=== PATIENT | female | born 1935 | race Caucasian/White ===

== ENCOUNTER → 2017-01-04 | Outpatient (CLI) | payer BC, OTHER ==
[~2017-01-04] MED LIST: OPTIRAY 320 IV PRN
--- NOTE | 2017-01-04 11:50 | DIAGNOSTIC IMAGING REPORT ---
CT kidneys KIDNEY (ABDOMEN) COMBO CLINICAL HISTORY: LEFT RENAL MASS renal mass TECHNIQUE: Pre and post contrast multi phase enhanced scans of the kidneys COMPARISON STUDY: 07/01/2016 FINDINGS: Study is performed in a helical fashion compared to the prior study. Unenhanced component of the study shows several exophytic cysts of the right as well as left kidney considered to be unchanged. There is hyperdense nodule posterior aspect upper pole left kidney evident maximum current dimensions of 1.8 cm. This measurement in retrospect is similar as compared to the prior study. Enhancement characteristics are unchanged. The unenhanced component of the study demonstrates a 27 Hounsfield unit measurement. Intermediate phases 22 Hounsfield units with delayed 52 Hounsfield units. All remaining components of the study shows simple cysts. Cortical atrophy of the left as well as right kidney is present. There is no evidence for new or interval process. Bowel pattern is nonobstructive. Peritoneum showed no significant adenopathy. There has been a prior cholecystectomy IMPRESSION: 1. The complex nodule upper pole left kidney is unchanged 2. Size, enhancement characteristics, and configuration show no change from the prior exam. 3. Several cysts involving both kidneys combine with components of cortical atrophy are stable. 4 no evidence for new or interval process. No significant adenopathy. 5. Continued monitoring per urologic recommendations is recommended to exclude the possibility of neoplasm. Electronically signed by: Bill Steinberg M.D. 01/04/2017 11:48 AM Dictated Date/Time: 01/04/2017 11:41 AM
== END | disposition home or self-care (01) ==
LOC: C.CTS 10:16
PROVIDERS: ATTEND Urology
DX: N28.89 Other specified disorders of kidney and ureter (principal); N28.1 Cyst of kidney, acquired

== ENCOUNTER → 2017-10-05 | Outpatient (CLI) | payer BC, OTHER ==
--- NOTE | 2017-10-05 11:21 | DIAGNOSTIC IMAGING REPORT ---
ABDOMEN AND PELVIS CT WITH IV CONTRAST CT DOSE: 1010.23 mGy.cm HISTORY: Follow-up study in a patient with a left renal mass N28.89 Left renal massnot diabetic, no latex allergy, no iodine TECHNIQUE: Multiaxial CT images of the abdomen and pelvis were performed following the use of intravenous contrast. 94 ml Optiray 320 IV contrast was administered A dose lowering technique was utilized adhering to the principles of ALARA. COMPARISON STUDY: CT 01/04/2017. FINDINGS: Mild dependent bibasilar atelectasis with subpleural reticular opacities suggesting areas of scarring. Calcified granuloma of the medial segment right middle lobe is noted. No pneumoperitoneum. Imaged inferior cardiac chambers are moderately enlarged. These are wires overlie the right atrium and right ventricle. Coarse calcifications of the mitral annulus are noted. Prior cholecystectomy. Mild dilation of the common bile duct, 9 mm is likely secondary to postcholecystectomy state. Nonspecific calcification of the posterior right hepatic lobe. Scattered calcifications are seen throughout the spleen compatible with prior granulomatous disease. 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 There is moderate diffuse pancreatic atrophy. Adrenal glands are unremarkable. Exophytic cyst of the lateral interpolar right kidney measures 2.6 cm. Areas of cortical scarring and lobulation are seen throughout the right kidney. Moderate to severe atrophy with cortical scarring and appears stable from comparison. Renal sinus cysts are seen bilaterally. There is an apparent enhancing soft tissue circumscribed ovoid lesion involving the superior pole left kidney measuring 2.3 x 2.0 x 2.0 cm in AP, transverse and cranial, dimensions, unchanged in size from comparison study dated 01/04/2017 1 measured in a similar fashion. Left renal vein is patent. There is no renal calculi or hydronephrosis. Urinary bladder is partially collapsed. Prior hysterectomy. At least moderate mixed plaquing of the aorta without aneurysm. No bulky adenopathy. There is no bowel obstruction or focal bowel wall thickening. Extensive sigmoid diverticulosis without CT evidence of acute diverticulitis. The appendix appears normal. Small fat filled periumbilical hernia, diastases 1.7 cm. Mild atrophy of the paraspinal musculature. Bones appear mildly demineralized. Degenerative changes are seen about the hips and spine. IMPRESSION: 1. Soft tissue attenuating ovoid circumscribed lesion of the superior pole left kidney is again seen measuring up to 2.3 x 2.0 x 2.0 cm which appears stable in size and appearance from comparison study 01/04/2017. Again, this is concerning for renal cell carcinoma. 2. No pathologic adenopathy or evidence of metastatic disease. 3. 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 4. Extensive sigmoid colonic diverticulosis without diverticulitis. 5. Multifocal renal parenchymal scarring and cortical lobulation is seen bilaterally with mild right and moderate to severe left renal atrophy. 6. Prior cholecystectomy and hysterectomy. Electronically signed by: Ronny Galeas M.D. 10/05/2017 11:20 AM Dictated Date/Time: 10/05/2017 11:09 AM
== END | disposition home or self-care (01) ==
LOC: C.CTS 10:41
PROVIDERS: ATTEND Urology
DX: N28.89 Other specified disorders of kidney and ureter (principal); K57.30 Diverticulosis of large intestine without perforation or abscess without bleeding